=== PATIENT | male | born 1990 | race Caucasian/White ===

== ENCOUNTER → 2018-12-01 | Outpatient (CLI) | payer OTHER ==
[2018-12-01 19:01] LABS: HEMATOCRIT 41.8 % (42.0-52.0); HEMOGLOBIN 13.7 g/dl (13.5-17.5); MEAN CORPUSCULAR HEMOGLOBIN 29.5 pg (27.0-33.0); MEAN CORPUSCULAR HGB CONC 32.8 g/dl (32.0-36.5); MEAN CORPUSCULAR VOLUME 89.9 fl (80.0-96.0); PLATELET COUNT, AUTOMATED 302 10^3/uL (150-450); RED BLOOD COUNT 4.65 10^6/uL (4.30-6.10); WHITE BLOOD COUNT 9.1 10^3/uL (4.0-10.0)
[2018-12-01 19:35] LABS: ALBUMIN 3.8 GM/DL (3.2-5.2); ALT/SGPT 131 U/L (12-78); BILIRUBIN,TOTAL 0.3 MG/DL (0.2-1.0); BLOOD UREA NITROGEN 18 MG/DL (7-18); CALCIUM LEVEL 8.5 MG/DL (8.5-10.1); CARBON DIOXIDE LEVEL 32 MEQ/L (21-32); CHLORIDE LEVEL 100 MEQ/L (98-107); GLOMERULAR FILTRATION RATE > 60.0 (>60); GLUCOSE, FASTING 61 MG/DL (70-100); POTASSIUM SERUM 4.9 MEQ/L (3.5-5.1); SODIUM LEVEL 138 MEQ/L (136-145); TOTAL PROTEIN 7.1 GM/DL (6.4-8.2)
[2018-12-01 20:41] LABS: CHLAMYDIA DNA AMPLIFICATION NEGATIVE (NEGATIVE); GC DNA AMPLIFICATION NEGATIVE (NEGATIVE)
[2018-12-02 10:03] LABS: HEPATITIS B SURFACE ANTIGEN NEGATIVE (NEGATIVE)
[2018-12-02 10:32] LABS: HIV 1&2 SCREEN CENTAUR NEGATIVE (NEGATIVE)
[2018-12-02 10:45] LABS: HEPATITIS C VIRUS ABY INDEX > 11.0 INDEX (<0.8)
== END ==
LOC: M LAB 18:03
PROVIDERS: ATTEND Family Medicine
DX: F11.20 Opioid dependence, uncomplicated (principal)

== ENCOUNTER → 2018-12-01 | Outpatient (CLI) | payer OTHER ==
[2018-12-01 19:00] LABS: APPEARANCE, URINE CLEAR (CLEAR); BACTERIA, URINE AUTO NEGATIVE (NEGATIVE); BILIRUBIN, URINE AUTO NEGATIVE (NEGATIVE); BLOOD, URINE BLOOD NEGATIVE (NEGATIVE); COLOR, URINE YELLOW (YELLOW); GLUCOSE, URINE (UA) AUTO NEGATIVE (NEGATIVE); KETONE, URINE AUTO NEGATIVE (NEGATIVE); LEUKOCYTE ESTERASE, URINE AUTO NEGATIVE (NEGATIVE); NITRITE, URINE AUTO NEGATIVE (NEGATIVE); PROTEIN, URINE AUTO NEGATIVE (NEGATIVE); RBC, URINE AUTO 0 /HPF (0-3); SPECIFIC GRAVITY URINE AUTO 1.019 (1.002-1.035); SQUAMOUS EPITHELIAL CELL UR AU 0 /HPF (0-6); UROBILINOGEN, URINE AUTO 0.2 mg/dL (0.0-2.0); WBC, URINE AUTO 1 /HPF (0-3)
[2018-12-01 19:02] LABS: BASO # 0.1 10^3/uL (0.0-0.2); BASO % 0.5 % (0.0-1.0); EOS # 0.5 10^3/uL (0.0-0.50); EOS % 5.8 % (0.0-3.0); HEMATOCRIT 40.1 % (42.0-52.0); HEMOGLOBIN 13.5 g/dl (13.5-17.5); LYMPH # 3.6 10^3/uL (1.5-4.5); LYMPH % 38.2 % (24.0-44.0); MEAN CORPUSCULAR HEMOGLOBIN 29.8 pg (27.0-33.0); MEAN CORPUSCULAR HGB CONC 33.7 g/dl (32.0-36.5); MEAN CORPUSCULAR VOLUME 88.5 fl (80.0-96.0); MONO % 10.4 % (0.0-5.0); NEUTROPHILS # 4.2 10^3/uL (1.8-7.7); NEUTROPHILS % 44.9 % (36.0-66.0); PLATELET COUNT, AUTOMATED 308 10^3/uL (150-450); RED BLOOD COUNT 4.53 10^6/uL (4.30-6.10); WHITE BLOOD COUNT 9.3 10^3/uL (4.0-10.0)
[2018-12-01 19:35] LABS: ALBUMIN 3.8 GM/DL (3.2-5.2); ALT/SGPT 129 U/L (12-78); BILIRUBIN,TOTAL 0.4 MG/DL (0.2-1.0); BLOOD UREA NITROGEN 17 MG/DL (7-18); CALCIUM LEVEL 8.5 MG/DL (8.5-10.1); CARBON DIOXIDE LEVEL 31 MEQ/L (21-32); CHLORIDE LEVEL 100 MEQ/L (98-107); CREATININE FOR GFR 0.88 MG/DL (0.70-1.30); GLOMERULAR FILTRATION RATE > 60.0 (>60); GLUCOSE, FASTING 64 MG/DL (70-100); POTASSIUM SERUM 4.9 MEQ/L (3.5-5.1); SODIUM LEVEL 138 MEQ/L (136-145); TOTAL PROTEIN 7.2 GM/DL (6.4-8.2)
[2018-12-02 09:51] LABS: HEPATITIS B SURFACE ANTIGEN NEGATIVE (NEGATIVE)
[2018-12-02 10:18] LABS: HEPATITIS B CORE ANTIBODY IGM NEGATIVE (NEGATIVE)
[2018-12-02 10:20] LABS: HEPATITIS A ANTIBODY IGM NEGATIVE (NEGATIVE)
[2018-12-02 10:37] LABS: HEPATITIS C VIRUS ABY INDEX > 11.0 INDEX (<0.8)
== END ==
LOC: M LAB 17:56
PROVIDERS: ATTEND Physician Assistant Medical
DX: Z02.2 Encounter for examination for admission to residential institution (principal)

== ENCOUNTER 2018-12-11 09:44 | Emergency (ER) | payer OTHER ==
[~2018-12-11] VITALS: Ht 182.9 cm; Wt 79.5 kg
[2018-12-11] MEDS ORDERED: SUBO8MIS (09:51)
[2018-12-11] MEDS ORDERED: GABA800T4 (09:51)
[2018-12-11] MEDS ORDERED: ISOVUE-370 76% 100ML VIAL (Q9967) As Ordered ONE (10:15)
[2018-12-11] MEDS ORDERED: NS 1,000 ML IV ONE (10:15)
[2018-12-11 10:46] LABS: BASO # 0.1 10^3/uL (0.0-0.2); BASO % 0.4 % (0.0-1.0); EOS # 0.4 10^3/uL (0.0-0.50); EOS % 2.9 % (0.0-3.0); HEMATOCRIT 44.1 % (42.0-52.0); HEMOGLOBIN 14.5 g/dl (13.5-17.5); LYMPH # 2.4 10^3/uL (1.5-4.5); LYMPH % 19.9 % (24.0-44.0); MEAN CORPUSCULAR HEMOGLOBIN 29.5 pg (27.0-33.0); MEAN CORPUSCULAR HGB CONC 32.9 g/dl (32.0-36.5); MEAN CORPUSCULAR VOLUME 89.8 fl (80.0-96.0); MONO # 1.1 10^3/uL (0.0-0.8); MONO % 9.3 % (0.0-5.0); NEUTROPHILS # 8.1 10^3/uL (1.8-7.7); NEUTROPHILS % 67.2 % (36.0-66.0); PLATELET COUNT, AUTOMATED 301 10^3/uL (150-450); RED BLOOD COUNT 4.91 10^6/uL (4.30-6.10)
[2018-12-11 11:06] LABS: ERYTHROCYTE SEDIMENTATION RATE 8 mm/hr (0-15)
[2018-12-11 11:09] LABS: BLOOD UREA NITROGEN 12 MG/DL (7-18); C REACTIVE PROTEIN QUANTITATIV 4.89 MG/DL (0.00-0.30); CALCIUM LEVEL 9.1 MG/DL (8.5-10.1); CARBON DIOXIDE LEVEL 28 MEQ/L (21-32); CHLORIDE LEVEL 100 MEQ/L (98-107); CREATININE FOR GFR 0.84 MG/DL (0.70-1.30); GLOMERULAR FILTRATION RATE > 60.0 (>60); GLUCOSE, FASTING 91 MG/DL (70-100); POTASSIUM SERUM 4.5 MEQ/L (3.5-5.1); SODIUM LEVEL 137 MEQ/L (136-145)
[2018-12-11] MEDS ORDERED: CLINDAMYCIN 600 MG in APPROPRIATE DILUENT 1 EA IV ONE (11:30)
[2018-12-11] MEDS ORDERED: CLEO300C2 PO (14:24)
[2018-12-11] MEDS ORDERED: CLON2TAB7 PO (14:35)
[2018-12-11 14:44] VITALS: BP 134/75
--- NOTE | 2018-12-11 14:48 | REP ---
MAXILLOFACIAL CT WITH CONTRAST: HISTORY: Left facial swelling. CONTRAST: Isovue-370, 75 mL. Minimal mucosal thickening is present in the maxillary and left sphenoid sinuses. The remaining sinuses are clear. Mucosal thickening involves the osteomeatal units. The middle and inferior nasal turbinates are partially paradoxical. There is mild deviation of the nasal septum to the right. A spur is present arising from the right side of the nasal septum. The spur abuts the right inferior nasal turbinate. The cribriform plate, medial robin of the orbits and optic canals are intact. The carotid canals form a segment of the posterolateral robin of the sphenoid sinus. The sphenoid sinus septa insert into the internal carotid canal robin. There is soft tissue thickening along the buccal surface of the body and angle of the left mandible. This represents a phlegmon. There is enlargement of the left macerator and plastyma muscles. Stranding is present in the overlying subcutaneous tissue. These findings are consistent with edema. There is no mass effect on the melquiades- or hypopharynx. The nasopharynx , larynx and subglottic trachea are normal in appearance. An enlarged lymph node 1.1 cm in width is present in the right internal jugular chain at the level of the oropharynx. An enlarged lymph node 1.6 cm in width is present in the left internal jugular chain at the level of the melquiades- and hypopharynx. An enlarged lymph node 1.3 cm in width is present in the left submandibular area. Small lymph nodes less than 1 cm in size are present in the posterior triangles, right submandibular and submental areas. Periapical lucency involves the second premolar tooth of the left mandible. There are possible dental caries involving several mandibular and maxillary teeth. IMPRESSION: 1. Sinus mucosal thickening as described above. 2. There is soft tissue thickening consistent with phlegmon along the buccal surface and angle of the left mandible. Electronically Signed by Reagan Devi MD 12/11/2018 02:54 P
== END 2018-12-11 14:45 | disposition home or self-care (01) ==
LOC: M ED 09:44
DX: K04.7 Periapical abscess without sinus (principal); J45.909 Unspecified asthma, uncomplicated; F19.10 Other psychoactive substance abuse, uncomplicated; F17.200 Nicotine dependence, unspecified, uncomplicated; Z79.899 Other long term (current) drug therapy
CPT/HCPCS: 70487; 80048; 83605; 85025; 85652; 86140; 87040; 96365; 99284; Q9967

== ENCOUNTER 2018-12-16 12:48 | Emergency (ER) | payer OTHER ==
[~2018-12-16] VITALS: Ht 193 cm; Wt 79.5 kg
[~2018-12-16 12:48] MED LIST: CLEO300C2 PO; CLON2TAB7 PO; GABA800T4; SUBO8MIS
[2018-12-16] MEDS ORDERED: cefTRIAXone SOD 1 GM VIAL (J0696) IM ONE (15:15)
[2018-12-16] MEDS ORDERED: LIDOCAINE 1% SDV 5 ML VIAL DILUENT ONE (15:15)
[2018-12-16] MEDS ORDERED: CLON1TAB8 PO ×2 (15:26→16:16)
[2018-12-16] MEDS ORDERED: GABA-845 PO (15:28)
[2018-12-16 16:11] VITALS: BP 123/56
== END 2018-12-16 16:15 | disposition home or self-care (01) ==
LOC: M ED 12:48
DX: K04.7 Periapical abscess without sinus (principal); J45.909 Unspecified asthma, uncomplicated; Z79.2 Long term (current) use of antibiotics; Z79.899 Other long term (current) drug therapy
CPT/HCPCS: 96372; 99283; J0696

== ENCOUNTER 2018-12-24 14:58 | Emergency (ER) | payer OTHER ==
[~2018-12-24] VITALS: Ht 182.9 cm; Wt 79.5 kg
[~2018-12-24 14:58] MED LIST changes: +CLON1TAB8 PO; +GABA-845 PO
[2018-12-24] MEDS ORDERED: VENTAER (15:12)
[2018-12-24] MEDS ORDERED: DEXTROAMP-AMPHETAMIN (15:12)
[2018-12-24] MEDS ORDERED: XANA1TAB2 PO (17:15)
[2018-12-24 17:25] LABS: AMPHETAMINES LEVEL URINE POSITIVE (NEGATIVE); BARBITURATES URINE NEGATIVE (NEGATIVE); BENZODIAZEPINES URINE POSITIVE (NEGATIVE); CANNABINOIDS URINE NEGATIVE (NEGATIVE); COCAINE METABOLITE URINE NEGATIVE (NEGATIVE); METHADONE URINE NEGATIVE (NEGATIVE); OPIATES URINE NEGATIVE (NEGATIVE); PHENCYCLIDINE URINE NEGATIVE (NEGATIVE)
[2018-12-24 17:33] VITALS: BP 130/90
[2018-12-24] MEDS ORDERED: CLON0.5T8 PO (17:40)
== END 2018-12-24 18:01 | disposition home or self-care (01) ==
LOC: M ED 14:58
DX: F41.0 Panic disorder [episodic paroxysmal anxiety] (principal); F90.9 Attention-deficit hyperactivity disorder, unspecified type; Z79.899 Other long term (current) drug therapy